=== PATIENT | male | born 1965 | race Two or more races ===

== ENCOUNTER 2024-01-13 04:25 | Emergency (ER) | payer MEDICAID ==
[2024-01-13 05:31] LABS: BASOPHILS PERCENT AUTO 0.2 % (0.1-1.3); EOSINOPHILS PERCENT AUTO 0.1 % (0.0-5.4); HEMATOCRIT 31.9 % (38.4-49.7); HEMOGLOBIN 10.5 g/dL (12.9-16.9); IMMATURE GRAN ABSOLUTE AUTO 0.08 K/uL (0.00-0.23); IMMATURE GRAN PERCENT AUTO 0.7 % (0.0-0.7); LYMPHOCYTES ABSOLUTE AUTO 1.39 K/uL (0.8-3.3); LYMPHOCYTES PERCENT AUTO 12.4 % (11.4-47.7); MEAN CORPUSCULAR HEMOGLOBIN 29.6 pg (31.6-35.5); MEAN CORPUSCULAR HGB CONC 32.9 g/dL (31.6-35.5); MEAN CORPUSCULAR VOLUME 89.9 fL (81.4-99.0); MONOCYTES ABSOLUTE AUTO 0.72 K/uL (0.20-0.90); MONOCYTES PERCENT AUTO 6.4 % (3.3-12.6); NEUTROPHILS ABSOLUTE AUTO 8.97 K/uL (1.0-7.6); NEUTROPHILS PERCENT AUTO 80.2 % (40.0-78.1); PLATELET COUNT,PLT 292 K/uL (130-375); RED BLOOD CELL COUNT 3.55 M/uL (4.14-5.76); WHITE BLOOD CELL COUNT,WBC 11.2 K/uL (3.2-11.0)
[2024-01-13 05:36] LABS: BASOPHILS ABSOLUTE AUTO 0.02 K/uL (0.00-0.10); EOSINOPHILS ABSOLUTE AUTO 0.01 K/uL (0.00-0.40)
== END 2024-01-13 05:59 | disposition home or self-care (01) ==
LOC: JP.ED 04:25
DX: R06.02 Shortness of breath (principal); F41.9 Anxiety disorder, unspecified; I10 Essential (primary) hypertension; I25.2 Old myocardial infarction; E11.9 Type 2 diabetes mellitus without complications; Z88.0 Allergy status to penicillin; Z79.82 Long term (current) use of aspirin; Z79.899 Other long term (current) drug therapy
CPT/HCPCS: 36415; 85025; 99283; 99284

== ENCOUNTER 2024-01-13 11:37 | Emergency (ER) | payer MEDICAID, OTHER ==
[2024-01-13] MEDS ORDERED: Naloxone 0.4 MG/ML SDV IVPUSH PRN (12:44)
[2024-01-13 13:03] LABS: BASOPHILS PERCENT AUTO 0.1 % (0.1-1.3); CREATININE 1.3 mg/dL (0.7-1.3); EST CRCL DRUG DOSING (CG) 53.22 mL/min; ESTIMATED GFR 63 mL/min (>60); HEMATOCRIT 31.1 % (38.4-49.7); HEMOGLOBIN 10.4 g/dL (12.9-16.9); IMMATURE GRAN ABSOLUTE AUTO 0.09 K/uL (0.00-0.23); IMMATURE GRAN PERCENT AUTO 0.7 % (0.0-0.7); LYMPHOCYTES ABSOLUTE AUTO 1.16 K/uL (0.8-3.3); LYMPHOCYTES PERCENT AUTO 9.6 % (11.4-47.7); MEAN CORPUSCULAR HEMOGLOBIN 30.2 pg (31.6-35.5); MEAN CORPUSCULAR HGB CONC 33.4 g/dL (31.6-35.5); MEAN CORPUSCULAR VOLUME 90.4 fL (81.4-99.0); MONOCYTES ABSOLUTE AUTO 0.89 K/uL (0.20-0.90); MONOCYTES PERCENT AUTO 7.4 % (3.3-12.6); NEUTROPHILS ABSOLUTE AUTO 9.94 K/uL (1.0-7.6); NEUTROPHILS PERCENT AUTO 82.2 % (40.0-78.1); PLATELET COUNT,PLT 437 K/uL (130-375); RED BLOOD CELL COUNT 3.44 M/uL (4.14-5.76); WHITE BLOOD CELL COUNT,WBC 12.1 K/uL (3.2-11.0)
[2024-01-13] MEDS: HYDROmorphone 0.5 MG/0.5 ML Syringe IVPUSH ONE (13:04)
[2024-01-13 13:05] LABS: BASE EXCESS VENOUS -3.7 mm/L; BICARBONATE,VENOUS 20.5 mmol/L; CARBOXYHEMOGLOBIN 2.4 % (0.0-1.6); METHEMOGLOBIN 0.8 %; OXYHEMOGLOBIN 63.9 %; PH,VENOUS 7.374 (7.350-7.450); PO2 VENOUS 43.8 mm/Hg; TOTAL HEMOGLOBIN 10.9 g/dL (13.5-18.0)
[2024-01-13 13:06] LABS: BASOPHILS ABSOLUTE AUTO 0.01 K/uL (0.00-0.10)
[2024-01-13] MEDS: Sodium Chloride 0.9% 1,000 ML IV ONE ×2 (13:12→14:35)
[2024-01-13 13:26] LABS: INR 1.9; PROTHROMBIN TIME 19.3 sec (9.2-10.6)
[2024-01-13 13:34] LABS: A/G RATIO 0.7 (1.2-2.2); ALANINE AMINOTRANSFERASE,ALT 146 U/L (12-78); ALBUMIN 3.2 g/dL (3.4-5.0); ALKALINE PHOSPHATASE 160 U/L (46-116); ASPARTATE AMNIOTRANSFERASE,AST 55 U/L (15-37); BILIRUBIN TOTAL 0.6 mg/dL (0.2-1.0); BLOOD UREA NITROGEN,BUN 27 mg/dL (7-18); CALCIUM 8.9 mg/dL (8.5-10.1); CARBON DIOXIDE,CO2 21 mmol/L (21-32); CHLORIDE,CL 99 mmol/L (100-108); GLUCOSE RANDOM 285 mg/dL (74-106); POTASSIUM,K 5.6 mmol/L (3.6-5.2); PRO B-TYPE NATRIUR PEPT,BNPPRO 3868 pg/mL (5-125); PROTEIN TOTAL,TP 7.9 g/dL (6.4-8.2); SODIUM,NA 132 mmol/L (140-148)
[2024-01-13 13:35] LABS: ANION GAP 17.6 mmol/L (5.0-14.0)
[2024-01-13 13:36] LABS: TROPONIN I HIGH SENSITIVITY 3579.1 pg/mL (<=60.3)
[2024-01-13 14:00] LABS: CORONAVIRUS COVID-19 NAA NEGATIVE (NEGATIVE); INFLUENZA A NAA NEGATIVE (NEGATIVE); INFLUENZA B NAA NEGATIVE (NEGATIVE); RESPIRATORY SYNCYTIAL VIR NAA NEGATIVE (NEGATIVE)
[2024-01-13] MEDS: Iopamidol 755 Mg/ML 100 ML Bottle IV SCH (14:34)
[2024-01-13] MEDS: Sodium Chloride 0.9% 100 ML IV ONE (14:34)
[2024-01-13] MEDS: Sodium Chloride 0.9% 10 ML Syringe FLUSH ONE (14:34)
[2024-01-13] MEDS: Furosemide 40 MG/4 ML VIAL IVPUSH ONE (14:35)
[2024-01-13] MEDS: Acetaminophen 325 MG Tab PO ONE (15:37)
[2024-01-13 16:54] LABS: APPEARANCE,URINE CLOUDY (CLEAR); BILIRUBIN,URINE NEGATIVE (NEGATIVE); COLOR,URINE YELLOW (YELLOW); GLUCOSE,URINE NEGATIVE (NEGATIVE); KETONES,URINE NEGATIVE (NEGATIVE); LEUKOCYTE ESTERASE,URINE NEGATIVE (NEGATIVE); NITRITE,URINE NEGATIVE (NEGATIVE); OCCULT BLOOD,URINE NEGATIVE (NEGATIVE); PROTEIN,URINE 100 mg/dL (NEGATIVE); UROBILINOGEN,URINE 0.2 EU/dL (0.2-1.0)
[2024-01-13 16:55] LABS: BACTERIA,URINE RARE; EPITHELIAL CELLS,URINE FEW; MUCUS,URINE MODERATE; RBC,URINE 0-5 (0-5); WBC,URINE 0-5 (0-5)
[2024-01-13 16:56] LABS: AMORPHOUS SEDIMENT,URINE FEW
== END 2024-01-13 15:53 ==
LOC: JP.ED 11:37
DX: S27.892A Contusion of other specified intrathoracic organs, initial encounter (principal); I10 Essential (primary) hypertension; I25.2 Old myocardial infarction; E11.9 Type 2 diabetes mellitus without complications; Z79.82 Long term (current) use of aspirin; Z79.01 Long term (current) use of anticoagulants; Z79.84 Long term (current) use of oral hypoglycemic drugs; Z79.899 Other long term (current) drug therapy; Z88.0 Allergy status to penicillin; X58.XXXA Exposure to other specified factors, initial encounter
CPT/HCPCS: 0241U; 36415; 71045; 71275; 80053; 81001; 82803; 83605; 83880; 84145; 84484; 85025; 85379; 85610; 93005; 96361; 96374; 96375; 99285; A9270; J1170; J1940; J3490; J7030; Q9967; 99283; 99284